=== PATIENT | male | born 1940 | race Caucasian/White ===

== ENCOUNTER → 2016-09-30 | Outpatient (CLI) | payer OTHER, BC ==
[~2016-09-30] MED LIST: ALPR0.5T PO; ASPCH81; DILT360C22 PO; PRAV20TA PO; TAMS0.4C59 PO; VALS160T4 PO
[2016-09-30 10:22] LABS: BASO % 0.4 %; BASO ABS # 0.03 K/uL (0-0.2); COMPLETE YES; EOS % 3.4 %; HEMATOCRIT 42.7 % (42-52); IG% 0.3 %; LYMPH % 22.2 %; LYMPH ABS # 1.56 K/uL (1.2-3.4); MEAN CELL VOLUME 85.1 fL (80-100); MEAN CORPUSCULAR HEMOGLOBIN 30.9 pg (25-34); MEAN CORPUSCULAR HGB CONC 36.3 g/dl (32-36); MEAN PLATELET VOLUME 11.4 fL (7.4-10.4); MONO % 14.4 %; NEUT % 59.3 %; PLATELET COUNT 194 K/uL (130-400); RED BLOOD COUNT 5.02 M/uL (4.7-6.1); WHITE BLOOD COUNT 7.03 K/uL (4.8-10.8)
[2016-09-30 10:25] LABS: URINE APPEARANCE CLEAR (CLEAR); URINE BILIRUBIN NEG (NEG); URINE COLOR YELLOW; URINE NITRITE NEG (NEG); URINE PH 6.5 (4.5-7.5); URINE SPECIFIC GRAVITY 1.012 (1.000-1.030); UROBILINOGEN NEG (NEG)
[2016-09-30 10:36] LABS: MANUAL MICROSCOPIC REQUIRED? NO; REVIEW REQ? NO
[2016-09-30 10:56] LABS: ALT/SGPT 38 U/L (12-78); AST/SGOT 32 U/L (15-37); BLOOD UREA NITROGEN 19 mg/dl (7-18); BUN/CREATININE RATIO 14.7 (10-20); CALCIUM 8.6 mg/dl (8.5-10.1); CARBON DIOXIDE 32 mmol/L (21-32); CHLORIDE 95 mmol/L (98-107); GLUCOSE 114 mg/dl (70-99); POTASSIUM 3.1 mmol/L (3.5-5.1); SODIUM 135 mmol/L (136-145)
[2016-09-30 10:58] LABS: ESTIMATED AVERAGE GLUCOSE 126 mg/dl; HA1C FLAG Normal (Normal)
[2016-09-30 11:07] LABS: CHOLESTEROL 181 mg/dl (0-200); CHOLESTEROL/HDL RATIO 3.5; HDL CHOLESTEROL 51 mg/dl; LDL CHOLESTEROL CALCULATED 87 mg/dl; TRIGLYCERIDES 215 mg/dl (0-150); VERY LOW DENSITY LIPOPROT CALC 43 mg/dl
--- NOTE | 2016-10-06 12:19 | CODING QUERY MEDICAL NECESSITY ---
SUPPORTING DIAGNOSIS NEEDED A supporting diagnosis is required for the test/procedure performed on this patient in order for us to be reimbursed by the patient's insurance. Please provide a supporting diagnosis for the following test/procedure listed below next to the test name along with your signature. *If there is no additional diagnosis for this patient that would support the following test/procedure please document that below next to the test/procedure. Test(s)/Procedure(s) that require a supporting diagnosis: * GLYCATED HEMOGLOBIN DIAGNOSIS: * DOS: 09/30/16 Provider Signature: Date: Thank you Shira Hernandez Health Information Management Once completed, please kindly fax back to [phone] For questions please call [phone]
== END | disposition home or self-care (01) ==
LOC: C.LAB1850 09:25
PROVIDERS: ATTEND Internal Medicine
DX: E78.00 Pure hypercholesterolemia, unspecified (principal); R73.9 Hyperglycemia, unspecified

== ENCOUNTER → 2016-12-16 | Outpatient (CLI) | payer OTHER, BC ==
[~2016-12-16] VITALS: Ht 172.7 cm; Wt 98.2 kg
[2016-12-16 13:49] VITALS: BP 146/78; PULSE 64; Ht 172.7 cm; Wt 98.2 kg
== END | disposition home or self-care (01) ==
LOC: C.NEUR 12:45
PROVIDERS: ATTEND Physician Assistant Medical
DX: G47.30 Sleep apnea, unspecified (principal)

== ENCOUNTER → 2017-04-15 | Outpatient (CLI) | payer OTHER, BC ==
[2017-04-15 12:10] LABS: BASO % 0.4 %; BASO ABS # 0.03 K/uL (0-0.2); COMPLETE YES; HEMATOCRIT 44.4 % (42-52); IG% 0.5 %; LYMPH % 22.7 %; LYMPH ABS # 1.86 K/uL (1.2-3.4); MEAN CELL VOLUME 88.4 fL (80-100); MEAN CORPUSCULAR HEMOGLOBIN 31.5 pg (25-34); MEAN CORPUSCULAR HGB CONC 35.6 g/dl (32-36); MEAN PLATELET VOLUME 12.3 fL (7.4-10.4); MONO % 12.6 %; NEUT % 58.8 %; PLATELET COUNT 186 K/uL (130-400); RED BLOOD COUNT 5.02 M/uL (4.7-6.1)
[2017-04-15 12:36] LABS: ESTIMATED AVERAGE GLUCOSE 120 mg/dl; HA1C FLAG Normal (Normal)
[2017-04-15 12:48] LABS: ALT/SGPT 35 U/L (12-78); AST/SGOT 33 U/L (15-37); BLOOD UREA NITROGEN 16 mg/dl (7-18); BUN/CREATININE RATIO 13.1 (10-20); CALCIUM 9.2 mg/dl (8.5-10.1); CARBON DIOXIDE 32 mmol/L (21-32); CHLORIDE 97 mmol/L (98-107); CHOLESTEROL 186 mg/dl (0-200); GLUCOSE 115 mg/dl (70-99); POTASSIUM 3.4 mmol/L (3.5-5.1); SODIUM 134 mmol/L (136-145); TRIGLYCERIDES 234 mg/dl (0-150); VERY LOW DENSITY LIPOPROT CALC 47 mg/dl
[2017-04-15 12:51] LABS: CHOLESTEROL/HDL RATIO 3.8; HDL CHOLESTEROL 49 mg/dl; LDL CHOLESTEROL CALCULATED 90 mg/dl
[2017-04-15 16:19] LABS: URINE APPEARANCE CLEAR (CLEAR); URINE BILIRUBIN NEG (NEG); URINE COLOR YELLOW; URINE NITRITE NEG (NEG); URINE PH >= 9.0 (4.5-7.5); URINE SPECIFIC GRAVITY 1.016 (1.000-1.030); UROBILINOGEN NEG (NEG)
[2017-04-15 16:20] LABS: MANUAL MICROSCOPIC REQUIRED? NO; REVIEW REQ? NO
== END | disposition home or self-care (01) ==
LOC: C.LAB1850 09:51
PROVIDERS: ATTEND Internal Medicine
DX: E78.00 Pure hypercholesterolemia, unspecified (principal)

== ENCOUNTER → 2017-04-23 | Outpatient (CLI) | payer OTHER, BC ==
--- NOTE | 2017-04-23 13:48 | DIAGNOSTIC IMAGING REPORT ---
LEFT KNEE 4 VIEWS HISTORY: Acute left knee pain. COMPARISON: None. FINDINGS: There is no fracture or dislocation. Soft tissues are unremarkable. No radiopaque foreign bodies. Mild cartilage space narrowing within the lateral patellofemoral compartment and a small marginal osteophytes. No knee effusion. Mild hypertrophy of the tibial spines. IMPRESSION: No fractures. Mild patellofemoral osteoarthritis. Electronically signed by: Kervin Benjamin M.D. 04/23/2017 1:47 PM Dictated Date/Time: 04/23/2017 1:45 PM
== END | disposition home or self-care (01) ==
LOC: C.RAD1850 13:29
PROVIDERS: ATTEND Physician Assistant
DX: M25.569 Pain in unspecified knee (principal)

== ENCOUNTER → 2017-06-16 | Outpatient (CLI) | payer OTHER, BC ==
[~2017-06-16] VITALS: Ht 172.7 cm; Wt 223.9 kg
[2017-06-16 13:49] VITALS: BP 156/81; PULSE 65; Ht 172.7 cm; Wt 223.9 kg
== END | disposition home or self-care (01) ==
LOC: C.NEUR 12:35
PROVIDERS: ATTEND Internal Medicine Pulmonary Disease
DX: G47.30 Sleep apnea, unspecified (principal)

== ENCOUNTER 2017-07-15 06:35 | Emergency (ER) | payer OTHER, BC ==
[~2017-07-15] VITALS: Ht 172.7 cm; Wt 103.1 kg
[2017-07-15 06:42] VITALS: TEMP 37.1; Ht 172.7 cm; Wt 103.1 kg
[2017-07-15] MEDS ORDERED: ACETAMINOPHEN 500 MG TAB PO STA (07:03)
[2017-07-15] MEDS ORDERED: OSELTAMIVIR PHOSPHATE 75 MG CAP PO STA (07:03)
[2017-07-15] MEDS ORDERED: ALBUTEROL 0.5% NEB SOLN 2.5 MG/0.5 ML VIAL INH STA ×2 (07:03→07:46)
[2017-07-15] MEDS ORDERED: HYDROCODONE/HOMATROPINE SYRUP 5MG/1.5MG 5ML UDP PO STA (07:03)
--- NOTE | 2017-07-15 07:12 | EMERGENCY ROOM VISIT NOTE ---
History Report prepared by Mikey: Braden Vuong Under the Supervision of: Dr. Aubrey Canchola M.D. First contact with patient: 06:47 Chief Complaint: COUGH Stated Complaint: COUGH,CAN'T CATCH BREATH,DRAINAGE IN THROAT History of Present Illness The patient is a 77 year old male who presents to the Emergency Room with complaints of a cough that began four days ago. He has a past medical history of hypertension and hyperlipidemia. The patient's symptoms began with fatigue, causing him to be bed ridden most of the weekend. He saw his PCP two days ago who placed him onto Doxycycline. After taking it normally for two days, he notes that his symptoms have not improved at all. He is also experiencing his chills, diaphoresis, cough, body aches, rhinorrhea, and post nasal drip. His chest is also moderately sore secondary to his cough. He denies any fevers, nausea, vomiting, or abdominal pain. He received his influenza immunization and notes that he has a history of getting the flu whenever he gets the immunization. Source of History: patient Onset: 4 days ago Position: other (Respiratory system) Symptom Intensity: moderate Quality: other (Cough) Timing: other (Persistent) Associated Symptoms: + chills, + diaphoresis, + chest pain (soreness, secondary to cough), No fevers, No nausea, No vomiting Note: He is experiencing post nasal drip, rhinorrhea, and body aches. Review of Systems See HPI for pertinent positives & negatives. A total of 10 systems reviewed and were otherwise negative. Past Medical & Surgical Medical Problems: (1) High cholesterol (2) Hypertension Family History Omitted secondary to the patient's age. Social History Smoking Status: Never Smoker Smokeless Tobacco Use: No Alcohol Use: occasionally Drug Use: none Occupation Status: retired Current/Historical Medications Scheduled Alprazolam (Xanax), 0.5 MG PO HS Aspirin (Aspirin), 81 MG PO DAILY Benzonatate (Tessalon Perles), 100 MG PO TID Diltiazem Hcl Extended Release (Tiazac 360 Mg), 360 MG PO DAILY Doxycycline Monohydrate (Monodox), 100 MG PO BID Oseltamivir Phosphate (Tamiflu), 75 MG PO BID Pantoprazole (Protonix), 40 MG PO DAILY Ranitidine Hcl (Zantac), 150 MG PO HS Rosuvastatin Calcium (Crestor), 5 MG PO DAILY Tamsulosin Hcl (Flomax), 0.4 MG PO HS Valsartan/Hctz (Diovan Hct 160MG/25MG), 1 TAB PO DAILY Scheduled PRN Hydrocodone W/ Homatropine (Hycodan 5/1.5MG 5 Ml), 5 ML PO HS PRN for Cough Allergies Coded Allergies: No Known Allergies (Unverified , 07/15/17) Physical Exam Vital Signs Date Time Temp Pulse Resp B/P (MAP) Pulse Ox O2 Delivery O2 Flow Rate FiO2 07/15/17 09:30 77 18 151/75 95 07/15/17 07:50 95 Room Air 07/15/17 07:48 71 07/15/17 06:42 37.1 74 18 159/84 93 Room Air Physical Exam GENERAL: Patient is a healthy-appearing well-nourished male HEAD: Normocephalic atraumatic EYES: Ocular movements intact pupils equal and react to light OROPHARYNX mucous membranes are moist no exudates present no erythema or edema present NECK: Supple no nuchal rigidity, no evidence of meningitis or encephalitis on exam. CHEST: Good equal expansion LUNGS: Clear and equal to auscultation CARDIAC: Normal S1 and S2 ABDOMEN: Soft nontender no guarding BACK: No CVA tenderness EXTREMITIES: No pain upon palpation normal muscle strength in all groups no clubbing cyanosis or edema NEURO: Patient is following commands and answering questions appropriately. Alert and oriented x3 Cranial Nerves 2-12 grossly intact Medical Decision & Procedures ER Provider Diagnostic Interpretation: Radiology results as stated below per my review and radiologist interpretation: CHEST ONE VIEW PORTABLE CLINICAL HISTORY: Pt c/o SOB dyspnea COMPARISON STUDY: 02/25/2016 FINDINGS: Mild stable cardiomegaly. Lungs are clear. Mild chronic elevation right hemidiaphragm. No focal infiltrate. IMPRESSION: No acute process. The above report was generated using voice recognition software. It may contain grammatical, syntax or spelling errors. Electronically signed by: Tad Barone M.D. 07/15/2017 7:24 AM Dictated Date/Time: 07/15/2017 7:23 AM Laboratory Results 07/15/17 07:35 Red Blood Count 4.73, Mean Corpuscular Volume 89.0, Mean Corpuscular Hemoglobin 31.9, Mean Corpuscular Hemoglobin Concent 35.9, Mean Platelet Volume 11.6, Neutrophils (%) (Auto) 73.5, Lymphocytes (%) (Auto) 7.4, Monocytes (%) (Auto) 17.2, Eosinophils (%) (Auto) 1.3, Basophils (%) (Auto) 0.2, Neutrophils # (Auto ) 7.64, Lymphocytes # (Auto) 0.77, Monocytes # (Auto) 1.79, Eosinophils # (Auto ) 0.14, Basophils # (Auto) 0.02 07/15/17 07:35 Test 07/15/17 07:27 07/15/17 07:35 07/15/17 08:24 Influenza Type A Antigen Neg for Influ A (NEG) Influenza Type B Antigen Neg for Influ B (NEG) White Blood Count 10.40 K/uL (4.8-10.8) Red Blood Count 4.73 M/uL (4.7-6.1) Hemoglobin 15.1 g/dL (14.0-18.0) Hematocrit 42.1 % (42-52) Mean Corpuscular Volume 89.0 fL (80-100) Mean Corpuscular Hemoglobin 31.9 pg (25-34) Mean Corpuscular Hemoglobin Concent 35.9 g/dl (32-36) Platelet Count 130 K/uL (130-400) Mean Platelet Volume 11.6 fL (7.4-10.4) Neutrophils (%) (Auto) 73.5 % Lymphocytes (%) (Auto) 7.4 % Monocytes (%) (Auto) 17.2 % Eosinophils (%) (Auto) 1.3 % Basophils (%) (Auto) 0.2 % Neutrophils # (Auto) 7.64 K/uL (1.4-6.5) Lymphocytes # (Auto) 0.77 K/uL (1.2-3.4) Monocytes # (Auto) 1.79 K/uL (0.11-0.59) Eosinophils # (Auto) 0.14 K/uL (0-0.5) Basophils # (Auto) 0.02 K/uL (0-0.2) RDW Standard Deviation 43.9 fL (36.4-46.3) RDW Coefficient of Variation 13.4 % (11.5-14.5) Immature Granulocyte % (Auto) 0.4 % Immature Granulocyte # (Auto) 0.04 K/uL (0.00-0.02) Anion Gap 7.0 mmol/L (3-11) Est Creatinine Clear Calc Drug Dose 55.8 ml/min Estimated GFR () 62.3 Estimated GFR (Non- 53.8 BUN/Creatinine Ratio 11.0 (10-20) Calcium Level 8.2 mg/dl (8.5-10.1) Total Bilirubin 0.9 mg/dl (0.2-1) Aspartate Amino Transf (AST/SGOT) 56 U/L (15-37) Alanine Aminotransferase (ALT/SGPT) 42 U/L (12-78) Alkaline Phosphatase 97 U/L (45-117) Total Creatine Kinase 1154 U/L (39-308) Creatine Kinase MB 1.7 ng/ml (0.5-3.6) Troponin I < 0.015 ng/ml (0-0.045) Total Protein 7.1 gm/dl (6.4-8.2) Albumin 3.6 gm/dl (3.4-5.0) Globulin 3.5 gm/dl (2.5-4.0) Albumin/Globulin Ratio 1.0 (0.9-2) Creatine Kinase MB Ratio (0-3.0) Labs reviewed by ED physician. Medications Administered Medications (Trade) Dose Ordered Sig/Joann Route Start Time Stop Time Status Last Admin Dose Admin Acetaminophen (Tylenol Tab) 1,000 mg NOW STAT PO 07/15/17 07:03 07/15/17 07:07 DC 07/15/17 07:53 1,000 MG Oseltamivir Phosphate (Tamiflu Cap) 75 mg NOW STAT PO 07/15/17 07:03 07/15/17 07:07 DC 07/15/17 07:52 75 MG Hydrocodone Bit/ Homatropine Methylb (Hycodan Syrup) 5 ml NOW STAT PO 07/15/17 07:03 07/15/17 07:07 DC 07/15/17 07:52 5 ML Albuterol Sulfate (Ventolin 0.5% 2.5MG/0.5ML Neb) 2.5 mg NOW STAT INH 07/15/17 07:03 07/15/17 07:08 DC 07/15/17 07:51 2.5 MG Ketorolac Tromethamine (Toradol Inj) 30 mg NOW STAT IV 07/15/17 07:46 07/15/17 07:47 DC 07/15/17 08:33 30 MG Potassium Chloride (Aidee Ciel Elix) 40 meq NOW STAT PO 07/15/17 08:07 07/15/17 08:08 DC 07/15/17 08:34 40 MEQ Potassium Chloride (Aidee Ciel Elix) 40 meq NOW STAT PO 07/15/17 08:39 07/15/17 08:40 DC 07/15/17 09:04 40 MEQ ECG Indication: SOB/dyspnea Rate (beats per minute): 66 Rhythm: normal sinus Findings: no acute ischemic change, no ectopy, other (Old anterior infarct) Comparison ECG Date: 10 May 2013 Change: no significant change ED Course 0647: Past medical records reviewed. The patient was evaluated in room A2. A complete history and physical examination was performed. 0703: Ordered Albuterol Sulfate 2.5 mg INH, Hycodan Syrup 5 ml PO, Tamiflu Cap 75 mg PO, Tylenol Tab 1000 mg PO 0746: Ordered Toradol Inj 30 mg IV, Albuterol Sulfate 2.5 mg INH 0807: Ordered Potassium Chloride 40 meq PO 0828: Upon reevaluation, the patient is starting to feel better. 0839: Ordered Potassium Chloride 40 meq PO 0900: Upon reexamination the patient is resting. I discussed results and treatment plan with the patient. He verbalizes agreement and understanding. The patient is ready for discharge. Medical Decision Differential diagnosis: Etiologies such as viral syndrome, otitis, pharyngitis, pneumonia, influenza, meningitis, urinary tract infection, sepsis, bacteremia, as well as others were entertained. This is a 77-year-old male who presents emergency department complaining of URI. The patient was given Tylenol as well as Hycodan and started on Tamiflu. I do suspect that the patient has influenza as he does not have an elevation in his white blood count cell count. I will start the patient on Tamiflu noting medical short duration of this. The patient I do believe is well enough to be discharged home for follow-up with his primary care physician. Patient was in agreement with the treatment plan. Medication Reconcilliation Current Medication List: was personally reviewed by me Blood Pressure Screening Patient's blood pressure: Elevated blood pressure Blood pressure disposition: Referred to PCP Impression Primary Impression: Upper respiratory infection Additional Impression: Hypertension Scribe Attestation The scribe's documentation has been prepared under my direction and personally reviewed by me in its entirety. I confirm that the note above accurately reflects all work, treatment, procedures, and medical decision making performed by me. Departure Information Dispostion Home / Self-Care Prescriptions Hydrocodone W/ Homatropine (HYCODAN 5/1.5MG 5 ML) 1 Syp Syp 5 ML PO HS Y for Cough, #120 ML Prov: Aubrey Canchola MD 07/15/17 Oseltamivir Phosphate (Tamiflu) 75 Mg Cap 75 MG PO BID, #10 CAP Prov: Aubrey Canchola MD 07/15/17 Referrals Yung Ruiz M.D. (PCP) Forms HOME CARE DOCUMENTATION FORM, IMPORTANT VISIT INFORMATION, School Instructions, Work Instructions Patient Instructions ED Dehydration, ED URI Viral, Hypertension Ct, [facility] Additional Instructions Increase fluids and Gatorade Take 1000 mg Tylenol every 6 hours Take 600 mg Ibuprofen every 6 hours Continue taking Doxycycline You were found to have an elevated blood pressure today (>120 sytolic or >90 diastolic). Per medicare guidelines, you need to follow up with this blood pressure screening with your Primary Care Physician (PCP). For a new PCP call [phone]. You received narcotic or benzodiazepene medication while in the emergency room today. This is an addictive medication that may cause drowziness as well as constipation. Do not drive, operate heavy machinery, or drink alcohol under the influence of this medication. Culture results are usually available in approx 48 hours You have been examined and treated today on an emergency basis only. This is not a substitute for, or an effort to provide, complete comprehensive medical care. It is impossible to recognize and treat all injuries or illnesses in a single emergency department visit. It is therefore important that you follow up closely with Dr Ruiz. Call as soon as possible for an appointment. Thank you for your time and consideration. I look forward to speaking with you again soon. Please don't hesitate to call us if you have any questions. Problem Qualifiers Primary Impression: Upper respiratory infection URI type: unspecified URI Qualified Codes: J06.9 - Acute upper respiratory infection, unspecified Additional Impression: Hypertension Hypertension type: unspecified Qualified Codes: I10 - Essential (primary) hypertension
--- NOTE | 2017-07-15 07:25 | DIAGNOSTIC IMAGING REPORT ---
CHEST ONE VIEW PORTABLE CLINICAL HISTORY: Pt c/o SOB dyspnea COMPARISON STUDY: 02/25/2016 FINDINGS: Mild stable cardiomegaly. Lungs are clear. Mild chronic elevation right hemidiaphragm. No focal infiltrate. IMPRESSION: No acute process. The above report was generated using voice recognition software. It may contain grammatical, syntax or spelling errors. Electronically signed by: Tad Barone M.D. 07/15/2017 7:24 AM Dictated Date/Time: 07/15/2017 7:23 AM
[2017-07-15] MEDS ORDERED: BENZ100C84 PO (07:45)
[2017-07-15] MEDS ORDERED: DOXY100C76 PO (07:45)
[2017-07-15] MEDS ORDERED: RANI150T3 PO (07:45)
[2017-07-15] MEDS ORDERED: ROSU5TAB PO (07:45)
[2017-07-15] MEDS ORDERED: PANT40TA PO (07:45)
[2017-07-15] MEDS ORDERED: TAMS0.4C38 PO (07:45)
[2017-07-15] MEDS ORDERED: ASPI-461 PO (07:45)
[2017-07-15] MEDS ORDERED: VALS160T60 PO (07:45)
[2017-07-15 07:46] LABS: BASO % 0.2 %; BASO ABS # 0.02 K/uL (0-0.2); EOS % 1.3 %; EOS ABS # 0.14 K/uL (0-0.5); HEMATOCRIT 42.1 % (42-52); HEMOGLOBIN 15.1 g/dL (14.0-18.0); IG# 0.04 K/uL (0.00-0.02); LYMPH % 7.4 %; LYMPH ABS # 0.77 K/uL (1.2-3.4); MEAN CORPUSCULAR HEMOGLOBIN 31.9 pg (25-34); MEAN CORPUSCULAR HGB CONC 35.9 g/dl (32-36); MEAN PLATELET VOLUME 11.6 fL (7.4-10.4); MONO % 17.2 %; MONO ABS # 1.79 K/uL (0.11-0.59); NEUT % 73.5 %; NEUT ABS # 7.64 K/uL (1.4-6.5); PLATELET COUNT 130 K/uL (130-400); RED CELL DISTRIBUTION WIDTH CV 13.4 % (11.5-14.5); RED CELL DISTRIBUTION WIDTH SD 43.9 fL (36.4-46.3)
[2017-07-15] MEDS ORDERED: KETOROLAC TROMETHAMINE 30 MG/ML VIAL IV STA (07:46)
[2017-07-15 07:50] VITALS: O2SAT 95
[2017-07-15 08:04] LABS: ALBUMIN 3.6 gm/dl (3.4-5.0); CALCIUM 8.2 mg/dl (8.5-10.1); CREATININE 1.27 mg/dl (0.60-1.40); POTASSIUM 2.7 mmol/L (3.5-5.1)
[2017-07-15] MEDS ORDERED: POTASSIUM CHLORIDE 20 MEQ/15 ML UDC PO STA ×2 (08:07→08:39)
[2017-07-15 08:18] LABS: TOTAL PROTEIN 7.1 gm/dl (6.4-8.2)
[2017-07-15 08:22] LABS: INFLUENZA B ANTIGEN Neg for Influ B (NEG)
[2017-07-15] MEDS ORDERED: OSEL75CA23 PO (08:47)
[2017-07-15] MEDS ORDERED: HYDR5SYP11 PO (08:47)
[2017-07-15 08:57] LABS: CKMB 1.7 ng/ml (0.5-3.6)
[2017-07-15 09:30] VITALS: BP 151/75; PULSE 77; O2SAT 95
== END 2017-07-15 09:32 | disposition home or self-care (01) ==
LOC: C.EDB 06:37 → C.EDA 09:32
DX: J06.9 Acute upper respiratory infection, unspecified (principal); I10 Essential (primary) hypertension; E78.5 Hyperlipidemia, unspecified; E78.00 Pure hypercholesterolemia, unspecified; Z79.82 Long term (current) use of aspirin; Z79.899 Other long term (current) drug therapy

== ENCOUNTER → 2017-09-15 | Outpatient (CLI) | payer OTHER, BC ==
[~2017-09-15] MED LIST changes: -ASPCH81; +ASPI-461 PO; +BENZ100C84 PO; +DOXY100C76 PO; +OSEL75CA23 PO; +PANT40TA PO; -PRAV20TA PO; +RANI150T3 PO; +ROSU5TAB PO; +TAMS0.4C38 PO; -TAMS0.4C59 PO; -VALS160T4 PO; +VALS160T60 PO
== END | disposition home or self-care (01) ==
LOC: C.LAB1850 12:32
PROVIDERS: ATTEND Internal Medicine
DX: M79.1 Myalgia (principal)

== ENCOUNTER 2017-11-10 12:03 | Observation (INO) | payer OTHER, BC ==
[~2017-11-10] VITALS: Ht 172.7 cm; Wt 93.7 kg
[2017-11-10] MEDS ORDERED: ASPIRIN 81 MG CHEW PO STA (12:33)
--- NOTE | 2017-11-10 12:36 | EMERGENCY ROOM VISIT NOTE ---
History Report prepared by Mikey: Harry Zaragoza Under the Supervision of: Dr. Catracho Argueta D.O. First contact with patient: 12:26 Chief Complaint: CHEST PAIN Stated Complaint: CHEST PAIN, BREATHING Nursing Triage Summary: pt reports chest pain started at 0900 . pain inbetween shoulder blades and radiates to left arm. pt states he was unloading shrubbery from trailer prior to pain starting. has hx of hypertension. . pt reports he drove here then parked while walking into ed he got dizzy. History of Present Illness The patient is a 77 year old male with a history of hypertension who presents to the Emergency Room with complaints of an episode of chest pain that started around 3 and a half hours ago. He states that he was walking in his home after unloading shrubbery from his trailer, and suddenly got pain across his chest. He notes that the pain went into his back underneath his left shoulder blade, and down his left arm. He states that he was lightheaded with the pain. He says that the pain is now completely gone. However, he adds that he got dizzy when he was walking into the ED today. The patient adds that he has been short of breath recently with a cough. He says that he takes a baby Aspirin daily, and took one earlier today. The patient notes that he has been going through some stress recently as he is trying to sell his home. He denies any heart racing. He adds that his legs are chronically swollen. He states that he had a stress test years ago and did not need stent placement. The patient states that he has no cardiac history and no notable surgical history. He is a non-smoker, and drinks occasional alcohol. Source of History: patient Onset: 3 and a half hours ago Position: chest Quality: other (pain) Timing: other (episode) Associated Symptoms: + cough, + SOB, + back pain Note: Associated symptoms: Lightheadedness, dizziness. Denies heart racing. Review of Systems See HPI for pertinent positives & negatives. A total of 10 systems reviewed and were otherwise negative. Past Medical & Surgical Medical Problems: (1) High cholesterol (2) Hypertension Family History Family history omitted secondary to patient's advanced age. Social History Smoking Status: Never Smoker Alcohol Use: occasionally Drug Use: none Occupation Status: retired Current/Historical Medications Scheduled Alprazolam (Xanax), 0.25 MG PO HS Aspirin (Aspirin), 81 MG PO DAILY Coenzyme Q10 (Ubidecarenone) (Coq-10), 50 MG PO DAILY Diltiazem Hcl Extended Release (Tiazac 360 Mg), 360 MG PO DAILY Pantoprazole (Protonix), 40 MG PO DAILY Ranitidine Hcl (Zantac), 150 MG PO HS Rosuvastatin Calcium (Crestor), 5 MG PO DAILY Tamsulosin Hcl (Flomax), 0.4 MG PO HS Valsartan (Diovan), 1 TAB PO DAILY Allergies Coded Allergies: No Known Allergies (Unverified , 11/10/17) Physical Exam Vital Signs Date Time Temp Pulse Resp B/P (MAP) Pulse Ox O2 Delivery O2 Flow Rate FiO2 11/10/17 13:53 57 17 150/77 97 Room Air 11/10/17 12:44 57 14 145/77 97 Room Air 11/10/17 12:44 96 Room Air 11/10/17 12:44 96 Room Air 11/10/17 12:17 64 11/10/17 12:15 37.0 62 20 174/79 96 Room Air 11/10/17 12:08 96 Room Air Physical Exam GENERAL: Patient is awake, alert, and in no acute distress. Patient is resting comfortably and showing no signs of anxiety EYES: The conjunctivae are clear. The pupils are round and reactive. EARS, NOSE, MOUTH AND THROAT: The nose is without any evidence of any deformity. Mucous membranes are moist tongue is midline NECK: The neck is nontender and supple. RESPIRATORY: Normal respiratory effort is noted there is no evidence of wheezing rhonchi or rales CARDIOVASCULAR: Regular rate and rhythm noted there no murmurs rubs or gallops normal S1 normal S2 GASTROINTESTINAL: The abdomen is soft. Bowel sounds are present in all quadrants. Abdomen is nontender MUSCULOSKELETAL/EXTREMITIES: There is no evidence of gross deformity full range of motion is noted in the hips and shoulders SKIN: Trace pedal edema bilaterally. NEUROLOGIC: Patient is awake alert and oriented x3. Medical Decision & Procedures ER Provider Diagnostic Interpretation: X-ray results as stated below per interpretation by me and the radiologist. CHEST ONE VIEW PORTABLE HISTORY: Atypical chest pain COMPARISON: Chest 07/15/2017. FINDINGS: There are low lung volumes. The heart remains mildly enlarged. No new focal lung consolidations to suggest pneumonia. No evidence for edema. No pleural effusions. No pneumothorax. Stable chronic elevation of the right hemidiaphragm. IMPRESSION: No significant change compared to the prior study. No acute process. Stable mild cardiomegaly. Electronically signed by: Kervin Benjamin M.D. 11/10/2017 12:44 PM Dictated Date/Time: 11/10/2017 12:43 PM Laboratory Results 11/10/17 12:20 Test 11/10/17 12:20 11/10/17 12:40 Red Blood Count 4.89 M/uL (4.7-6.1) Mean Corpuscular Volume 85.7 fL (80-100) Mean Corpuscular Hemoglobin 31.9 pg (25-34) Mean Corpuscular Hemoglobin Concent 37.2 g/dl (32-36) RDW Standard Deviation 42.0 fL (36.4-46.3) RDW Coefficient of Variation 13.5 % (11.5-14.5) Mean Platelet Volume 11.9 fL (7.4-10.4) Prothrombin Time 10.6 SECONDS (9.0-12.0) Prothromb Time International Ratio 1.0 (0.9-1.1) Activated Partial Thromboplast Time 25.4 SECONDS (21.0-31.0) Partial Thromboplastin Ratio 1.0 Total Bilirubin 0.8 mg/dl (0.2-1) Aspartate Amino Transf (AST/SGOT) 48 U/L (15-37) Alanine Aminotransferase (ALT/SGPT) 45 U/L (12-78) Alkaline Phosphatase 111 U/L (45-117) Creatine Kinase MB 6.6 ng/ml (0.5-3.6) Creatine Kinase MB Ratio 1.1 (0-3.0) Total Protein 7.7 gm/dl (6.4-8.2) Albumin 3.8 gm/dl (3.4-5.0) Globulin 3.9 gm/dl (2.5-4.0) Albumin/Globulin Ratio 1.0 (0.9-2) Bedside Troponin I < 0.030 ng/ml (0-0.045) Laboratory results per my review. Medications Administered Medications (Trade) Dose Ordered Sig/Joann Route Start Time Stop Time Status Last Admin Dose Admin Aspirin (Aspirin Chew) 162 mg NOW STAT PO 5/8/18 12:33 11/10/17 12:34 DC 11/10/17 12:43 162 MG Acetaminophen (Tylenol Tab) 650 mg Q4H PRN PO 11/10/17 14:30 11/11/17 18:17 DC 11/11/17 05:50 650 MG ECG Per My Interpretation Indication: chest pain Rate (beats per minute): 61 Rhythm: sinus rhythm Findings: LBBB, other (no PVCs, no acute ST segment abnormalities) Change: no significant change (from 07/15/17) ED Course 1229: The patient was evaluated in room A2. A complete history and physical examination were performed. 1233: Aspirin Chew 162 mg PO. 1325: Upon reevaluation, the patient is resting. I discussed results and treatment plan with him. He verbalizes agreement and understanding. The patient will be evaluated for further management and care. 1405: I discussed the patient with Dr. Brian ACHARYA zoning assistant. He will evaluate the patient for further treatment. Medical Decision Differential diagnosis: Etiologies such as cardiac ischemia, aortic dissection, pulmonary embolism, pneumonia, pneumothorax, musculoskeletal, infections, pericarditis, myocarditis , esophageal rupture, gastrointestinal, as well as others were entertained. Nursing notes reviewed. The patient is a 77-year-old male who presented to the emergency department for dyspnea on exertion. The patient's been having symptoms for approximately a week or 2. He states today he started noticing exertional chest pain as well. I discussed patient's laboratory and radiographic studies with him. I also discussed the limitations of the emergency department workup for chest pain with him. Given his risk factors and complaints at this time I discussed his case with the on-call [facility] hospitalist. They have agreed to evaluate the patient in the emergency department for further management and disposition. Medication Reconcilliation Current Medication List: was personally reviewed by me Blood Pressure Screening Patient's blood pressure: Elevated blood pressure Referred to hospitalist. Consults Time Called: 1330 Consulting Physician: Dr. Brian ACHARYA zoning assistant Returned Call: 1407 I discussed the patient with Dr. Brian ACHARYA zoning assistant. He will evaluate the patient for further treatment. Impression Primary Impression: Exertional chest pain Additional Impression: Dyspnea on exertion Scribe Attestation The scribe's documentation has been prepared under my direction and personally reviewed by me in its entirety. I confirm that the note above accurately reflects all work, treatment, procedures, and medical decision making performed by me. Departure Information Dispostion Being Evaluated By Hospitalist Prescriptions Coenzyme Q10 (Ubidecarenone) (COQ-10) 50 Mg Cap 50 MG PO DAILY for 30 Days OTC Prov: Akiko Adkins MD 11/11/17 Valsartan (DIOVAN) 160 Mg Tab 1 TAB PO DAILY for 30 Days, #30 TAB 0 Refills Prov: Akiko Adkins MD 11/11/17 Rosuvastatin Calcium (CRESTOR) 5 Mg Tab 5 MG PO DAILY for 30 Days HOLD x 1-2 weeks until muscle aches resolve, and then restart Prov: Akiko Adkins MD 11/11/17 Alprazolam (XANAX) 0.5 Mg Tab 0.25 MG PO HS for 30 Days, TAB Prov: Akiko Adkins MD 11/11/17 Referrals Yung Ruiz M.D. (PCP) Patient Instructions My [facility] Problem Qualifiers
[2017-11-10 12:40] LABS: HEMATOCRIT 41.9 % (42-52); HEMOGLOBIN 15.6 g/dL (14.0-18.0); MEAN CELL VOLUME 85.7 fL (80-100); MEAN CORPUSCULAR HEMOGLOBIN 31.9 pg (25-34); MEAN CORPUSCULAR HGB CONC 37.2 g/dl (32-36); MEAN PLATELET VOLUME 11.9 fL (7.4-10.4); PLATELET COUNT 152 K/uL (130-400); RED CELL DISTRIBUTION WIDTH CV 13.5 % (11.5-14.5); WHITE BLOOD COUNT 8.02 K/uL (4.8-10.8)
--- NOTE | 2017-11-10 12:45 | DIAGNOSTIC IMAGING REPORT ---
CHEST ONE VIEW PORTABLE HISTORY: Atypical chest pain COMPARISON: Chest 07/15/2017. FINDINGS: There are low lung volumes. The heart remains mildly enlarged. No new focal lung consolidations to suggest pneumonia. No evidence for edema. No pleural effusions. No pneumothorax. Stable chronic elevation of the right hemidiaphragm. IMPRESSION: No significant change compared to the prior study. No acute process. Stable mild cardiomegaly. Electronically signed by: Kervin Benjamin M.D. 11/10/2017 12:44 PM Dictated Date/Time: 11/10/2017 12:43 PM
[2017-11-10 12:51] LABS: ALBUMIN 3.8 gm/dl (3.4-5.0); CALCIUM 8.5 mg/dl (8.5-10.1); CREATININE 1.38 mg/dl (0.60-1.40); POTASSIUM 3.2 mmol/L (3.5-5.1)
[2017-11-10 12:53] LABS: PTT PATIENT 25.4 SECONDS (21.0-31.0)
[2017-11-10 12:56] LABS: CKMB 6.6 ng/ml (0.5-3.6); TOTAL PROTEIN 7.7 gm/dl (6.4-8.2)
[2017-11-10] MEDS ORDERED: POLYETHYLENE (MIRALAX) 17 GM PACK PO PRN (14:30)
[2017-11-10] MEDS ORDERED: MoRPHine SULFATE 2 MG/ML CARP IV PRN (14:30)
[2017-11-10] MEDS ORDERED: ONDANSETRON INJ 2 MG/ML 2 ML VIAL IV PRN (14:30)
[2017-11-10] MEDS ORDERED: ALUMINUM/MAGNESIUM/SIMETH (MAALOX MAX) 30 ML UDC PO PRN (14:30)
[2017-11-10] MEDS ORDERED: MAGNESIUM HYDROXIDE SUSP 30 ML UDC PO PRN (14:30)
[2017-11-10] MEDS ORDERED: ACETAMINOPHEN 325 MG TAB PO PRN (14:30)
[2017-11-10] MEDS ORDERED: NITROGLYCERIN 0.4 MG SL PER TAB CHARGE SL PRN (14:30)
[2017-11-10] MEDS ORDERED: MAGNESIUM SULFATE 1GM / D5W 100 ML IV STA (14:45)
--- NOTE | 2017-11-10 14:53 | History and Physical ---
History & Physical Date & Time of Service: November 10, 2017 at 14:48 Chief Complaint: Chest Pain, Breathing Primary Care Physician: Yung Ruiz M.D. History of Present Illness Source: patient, hospital records 77 y/o M Hx HTN, HPL, BPH, GERD. Pt reports exertional CP and SOB which has progressed over the past week. He states that he could barely walk across the parking lot today without the onset of symptoms. He denies radiation of the CP , denies nausea/vomiting or diaphoresis. He does not have a documented history of CAD. Initial labs revealed an elevated CK although a troponin was WNL. An EKG revealed inferior Q wvs without any acute changes. Past Medical/Surgical History 1) HTN 2) HPL 3) BPH 4) GERD 5) Anxiety Family History Parents - history of CAD Social History Smoking Status: Never Smoker Drug Use: none Occupational Status: retired Allergies Coded Allergies: No Known Allergies (Unverified , 07/15/17) Home Medications Scheduled Alprazolam (Xanax), 0.5 MG PO HS Aspirin (Aspirin), 81 MG PO DAILY Benzonatate (Tessalon Perles), 100 MG PO TID Diltiazem Hcl Extended Release (Tiazac 360 Mg), 360 MG PO DAILY Doxycycline Monohydrate (Monodox), 100 MG PO BID Oseltamivir Phosphate (Tamiflu), 75 MG PO BID Pantoprazole (Protonix), 40 MG PO DAILY Ranitidine Hcl (Zantac), 150 MG PO HS Rosuvastatin Calcium (Crestor), 5 MG PO DAILY Tamsulosin Hcl (Flomax), 0.4 MG PO HS Valsartan/Hctz (Diovan Hct 160MG/25MG), 1 TAB PO DAILY Review of Systems Constitutional: No fever, No chills, No sweats Eyes: No worsening of vision ENT: No hearing loss, No unusual epistaxis, No nasal symptoms Respiratory: + dyspnea on exertion, No cough, No wheezing Cardiovascular: + chest pain, No orthopnea, No PND Abdomen: No pain, No vomiting Musculoskeletal: + problem reported (Reports generalized muscle pains for 2 years), No joint pain Genitourinary - Male: No hematuria, No dysuria Neurologic: No memory loss, No paralysis, No weakness Psychiatric: No depression symptoms Endocrine: No fatigue Hematologic / Lymphatic: No abnormal bleeding/bruising Integumentary: No rash Allergic / Immunologic: No environmental allergies Physical Exam Vital Signs Date Time Temp Pulse Resp B/P (MAP) Pulse Ox O2 Delivery O2 Flow Rate FiO2 11/10/17 13:53 57 17 150/77 97 Room Air 11/10/17 12:44 57 14 145/77 97 Room Air 11/10/17 12:44 96 Room Air 11/10/17 12:44 96 Room Air 11/10/17 12:17 64 11/10/17 12:15 37.0 62 20 174/79 96 Room Air 11/10/17 12:08 96 Room Air General Appearance: WD/WN, no apparent distress Head: normocephalic Eyes: normal inspection ENT: normal ENT inspection, pharynx normal Neck: supple, no JVD Respiratory/Chest: chest non-tender, lungs clear, normal breath sounds Cardiovascular: regular rate, rhythm Abdomen/GI: normal bowel sounds, non tender, soft Back: normal inspection Extremities/Musculoskelatal: normal inspection, no calf tenderness, normal capillary refill 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, no motor/sensory deficits, alert, oriented x 3 Skin: normal color Diagnostics Laboratory Results Results Past 24 Hours Test 11/10/17 12:20 11/10/17 12:40 Range/Units White Blood Count 8.02 4.8-10.8 K/uL Red Blood Count 4.89 4.7-6.1 M/uL Hemoglobin 15.6 14.0-18.0 g/dL Hematocrit 41.9 42-52 % Mean Corpuscular Volume 85.7 80-100 fL Mean Corpuscular Hemoglobin 31.9 25-34 pg Mean Corpuscular Hemoglobin Concent 37.2 32-36 g/dl RDW Standard Deviation 42.0 36.4-46.3 fL RDW Coefficient of Variation 13.5 11.5-14.5 % Platelet Count 152 130-400 K/uL Mean Platelet Volume 11.9 7.4-10.4 fL Prothrombin Time 10.6 9.0-12.0 SECONDS Prothromb Time International Ratio 1.0 0.9-1.1 Activated Partial Thromboplast Time 25.4 21.0-31.0 SECONDS Partial Thromboplastin Ratio 1.0 Sodium Level 134 136-145 mmol/L Potassium Level 3.2 3.5-5.1 mmol/L Chloride Level 98 98-107 mmol/L Carbon Dioxide Level 30 21-32 mmol/L Anion Gap 6.0 3-11 mmol/L Blood Urea Nitrogen 12 7-18 mg/dl Creatinine 1.38 0.60-1.40 mg/dl Est Creatinine Clear Calc Drug Dose 49.0 ml/min Estimated GFR () 56.4 Estimated GFR (Non- 48.6 BUN/Creatinine Ratio 8.8 10-20 Random Glucose 107 70-99 mg/dl Calcium Level 8.5 8.5-10.1 mg/dl Total Bilirubin 0.8 0.2-1 mg/dl Aspartate Amino Transf (AST/SGOT) 48 15-37 U/L Alanine Aminotransferase (ALT/SGPT) 45 12-78 U/L Alkaline Phosphatase 111 45-117 U/L Total Creatine Kinase 619 39-308 U/L Creatine Kinase MB 6.6 0.5-3.6 ng/ml Creatine Kinase MB Ratio 1.1 0-3.0 Total Protein 7.7 6.4-8.2 gm/dl Albumin 3.8 3.4-5.0 gm/dl Globulin 3.9 2.5-4.0 gm/dl Albumin/Globulin Ratio 1.0 0.9-2 Bedside Troponin I < 0.030 0-0.045 ng/ml EKG Sinus, Inferior Q waves - no acute changes Impression Assessment and Plan 77 y/o M Hx HTN, HPL, BPH, GERD. Pt reports exertional CP and SOB which has progressed over the past week. He states that he could barely walk across the parking lot today without the onset of symptoms. He denies radiation of the CP , denies nausea/vomiting or diaphoresis. He does not have a documented history of CAD. Initial labs revealed an elevated CK although a troponin was WNL. An EKG revealed inferior Q wvs without any acute changes. 1) Exertional CP - elevated CK - abnormal EKG - will monitor overnight - cont ASA, statin - serial troponin. A nuclear stress is scheduled for AM. 2) Elevated CK may represent evolving rhabdo as he was working outdoors today - will trend - IVF provided. Alternatively, he states that he has been c/o muscle pain for at least 2 years. He takes Crestor and may benefit from a cessation trial in the outpt setting provided CAD is ruled out. 3) HTN - cont Diltiazem, Valsartan - HCTZ held due to electrolyte abnormalities 4) HPL - cont Crestor 5) GERD - cont Ranitidine, Protonix 6) BPH - cont Flomax 7) Initial K was low and has been repleted Full code - Heparin prophylaxis Total time for this admit including review of labs, meds, imaging, records - discussion with pt and ER attending - 35 min Resuscitation Status VTE Prophylaxis Will order VTE Prophylaxis: Yes
[2017-11-10 15:00] VITALS: O2SAT 98
[2017-11-10] MEDS ORDERED: IV FLUIDS COMPLETED PRN (15:00)
[2017-11-10 15:30] VITALS: Ht 172.7 cm; Wt 93.7 kg
[2017-11-10] MEDS ORDERED: POTASSIUM CHLORIDE PWD 20 MEQ PACK PO ONE (16:15)
[2017-11-10] MEDS: D5NSS + 20MEQ KCL 1,000 ML IV SCH (16:46)
[2017-11-10 17:19] VITALS: BP 186/87; PULSE 75; TEMP 36.9; O2SAT 97
[2017-11-10 19:05] VITALS: BP 149/86; PULSE 64; TEMP 37.2; O2SAT 95
[2017-11-10] MEDS ORDERED: RANITIDINE HCL 150 MG TAB PO SCH (21:00)
[2017-11-10] MEDS ORDERED: TAMSULOSIN HCL 0.4 MG CAP PO SCH (21:00)
[2017-11-10] MEDS ORDERED: ALPRAZOLAM 0.5 MG TAB PO SCH (21:00)
[2017-11-10] MEDS: BENZONATATE 100MG CAP PO SCH ×2 (21:00→21:04)
[2017-11-10 23:04] VITALS: BP 152/80; PULSE 61; TEMP 36.9; O2SAT 95
[2017-11-11 03:16] VITALS: BP 156/79; PULSE 55; TEMP 36.8; O2SAT 98
[2017-11-11] MEDS: D5NSS + 20MEQ KCL 1,000 ML IV SCH (05:50)
[2017-11-11 06:45] LABS: CREATININE 1.23 mg/dl (0.60-1.40); POTASSIUM 3.2 mmol/L (3.5-5.1)
[2017-11-11 06:46] VITALS: BP 156/81; PULSE 54; TEMP 36.5; O2SAT 98
[2017-11-11] MEDS ORDERED: POTASSIUM CHLORIDE 10 MEQ TABCR PO STA (07:37)
[2017-11-11] MEDS: BENZONATATE 100MG CAP PO SCH ×2 (08:01→14:00)
[2017-11-11] MEDS ORDERED: DILTIAZEM HCL (TIAzac) 180 MG CAPCR PO SCH ×2 (09:00→21:00)
[2017-11-11] MEDS ORDERED: VALSARTAN 80 MG TAB PO SCH (09:00)
[2017-11-11] MEDS ORDERED: ROSUVASTATIN CALCIUM 5 MG TAB PO SCH (09:00)
[2017-11-11] MEDS ORDERED: HYDROCHLOROTHIAZIDE 25 MG TAB PO SCH (09:00)
[2017-11-11] MEDS ORDERED: PANTOprazole SOD 40 MG TAB PO SCH (09:00)
[2017-11-11] MEDS ORDERED: ASPIRIN 81 MG ECTAB PO SCH ×2 (09:00)
[2017-11-11] MEDS ORDERED: NURSING VERBAL MED ORDER ONE (11:15)
[2017-11-11] MEDS ORDERED: HYDROCHLOROTHIAZIDE 25 MG TAB PO ONE (11:30)
[2017-11-11 11:39] VITALS: BP 184/97; PULSE 60; TEMP 36.7; O2SAT 95
[2017-11-11] MEDS ORDERED: REGADENOSON 0.4 MG/5 ML SYR ONE (12:30)
[2017-11-11] MEDS ORDERED: ALPR0.5T PO (13:31)
--- NOTE | 2017-11-11 14:46 | Medical Student: [facility] ---
Med Student Progress Note Date of Service November 11, 2017. Subjective Pt evaluation today including: conversation w/ patient, physical exam Pain: None Voiding: no voiding problems This is a 77-year-old man with a history of hypertension, hypercholesterolemia, and GERD who presented to the emergency room after a 1 minute episode of chest "tightness." He says that it began yesterday when he was moving shrubbery from his trailer at his home. He developed a tight feeling in his chest that radiated to his left arm and a "stabbing" sensation in his left shoulder blade. He says he rested for about 10-15 minutes, but the pain disappeared after 1 minute. He denies feeling short of breath, diaphoretic, or nauseous, however, he says that he has had episodes of lightheadedness and shortness of breath on exertion over the past "couple of years." He attributes this to being "out of shape." In addition, he states that he has been experiencing generalized muscle "aches" and weakness for the past few years. Upon review of his medical record, Dr. Ruiz, his PCP, is aware and is working this up. He was previously on pravastatin and began having myalgias. He stopped using it and his pain decreased. When he was restarted and the pain returned, he was switched to rosuvastatin and took coenzyme q10 with it which decreased his symptoms. Documentation in [employer]scripts states the the pain returned when he stopped taking the coenzyme q10. Dr. Ruiz was suspicious of polymalgia rheumatica and ordered ESR which was 9. He has yet to return to his office for continuing evaluation of these myalgias. Currently he is asymptomatic other than having diffuse muscle aches. Review of Systems Eyes: No worsening of vision Respiratory: No cough, No shortness of breath Cardiac: No chest pain, No palpitations Abdomen: No pain, No nausea, No vomiting, No diarrhea Male : No dysuria, No urinary frequency Neurologic: + weakness (feeling "not strong") Psychiatric: No depression symptoms Heme: No abnormal bleeding/bruising Endo: + fatigue Objective Vital Signs Date Time Temp Pulse Resp B/P (MAP) Pulse Ox O2 Delivery O2 Flow Rate FiO2 11/11/17 11:39 36.7 60 18 184/97 (126) 95 Room Air 5/9/18 08:00 Room Air 11/11/17 06:46 36.5 54 17 156/81 (106) 98 Room Air 11/11/17 04:02 Room Air 11/11/17 03:16 36.8 55 17 156/79 (104) 98 Room Air 11/11/17 00:01 Room Air 11/10/17 23:04 36.9 61 18 152/80 (104) 95 Room Air 11/10/17 21:54 Room Air 11/10/17 20:00 Room Air 11/10/17 19:05 37.2 64 149/86 (107) 95 Room Air 11/10/17 17:19 36.9 75 18 186/87 (120) 97 Room Air 11/10/17 15:30 Room Air 11/10/17 15:00 60 20 169/85 98 Room Air Physical Exam General Appearance: WD/WN, no apparent distress Eyes: bilateral eyes normal inspection ENT: TMs normal Respiratory/Chest: lungs clear, normal breath sounds, no respiratory distress Cardiovascular: regular rate, rhythm, no gallop Abdomen: normal bowel sounds, non tender, soft Extremities: non-tender, no pedal edema, no calf tenderness, + pertinent finding Neurologic/Psychiatric: + pertinent finding (strength is 5/5 in both proximal and distal upper and lower extremities) Laboratory Results Last 24 Hours Test 11/10/17 16:58 11/10/17 22:50 11/11/17 05:23 Total Creatine Kinase 574 U/L 463 U/L Troponin I < 0.015 ng/ml < 0.015 ng/ml Sodium Level 138 mmol/L Potassium Level 3.2 mmol/L Chloride Level 103 mmol/L Carbon Dioxide Level 29 mmol/L Anion Gap 6.0 mmol/L Blood Urea Nitrogen 14 mg/dl Creatinine 1.23 mg/dl Est Creatinine Clear Calc Drug Dose 55.0 ml/min Estimated GFR () 64.8 Estimated GFR (Non- 55.9 BUN/Creatinine Ratio 11.3 Random Glucose 113 mg/dl Calcium Level 8.0 mg/dl Assessment and Plan Assessment and Plan: This is a 77-year-old man with a history of hypertension, hypercholesterolemia, and GERD who presented with an first-time episode of angina pectoris who was found to have elevated creatinine kinase. UNSTABLE ANGINA Pt presents with exertional chest pain radiating to the left shoulder and left scapula that is relieved with rest with a history of exertional shortness of breath and cardiovascular risk factors including male sex, age of 77, and hypertension. As this is his first episode, this is consistent with unstable angina. Trended troponins (x3) are nonelevated and EKG shows no signs of ischemia. - Admitted to telemetry for continuous cardiac monitoring. He is in sinus rhythm in the 50s and 60s with PACs, PVCs, and intermittent first degree AV block. - His most recent lipid panel as an outpatient was normal except for an elevated triglyceride of 234. He is not diabetic. His last A1C is 5.8% in Apr. - He is currently receiving aspirin, rosuvastatin, and antihypertensive therapy (see below). - He has undergone an echo and a nuclear stress test. Echo reveals an EF of 60- 65% with borderline LVH and grade 1 diastolic dysfunction. Nuclear stress test did not cause EKG changes or symptoms in pt. - Consult cardiology for their opinion on when cardiac catheterization should be done: tomorrow or as an outpatient. ELEVATED CK CK was 619 on admission and is now 463 and trending downward. However, his CK level has been elevated for several months. He has been experiencing myalgias for years. He was switched from pravastatin to rosuvastatin. He had improvement of his symptoms when rosuvastatin was paired with coenzyme q10, but stopped taking it for an unknown reason. The most likely explanation for the CK is an adverse reaction of the statin, since ESR was 9 as an outpatient in September, making PMR less likely. I would recommend either a trial of fluvastatin, restarting coenzyme q10, reducing dose frequency to every other day, or stopping statin therapy and switching to ezetimibe. HYPERTENSION As an outpatient, he is managed with diltiazem 360 mg and Valsartan/HCTZ 160/25 mg daily. Since admission, we have held HCTZ due to hypokalemia. His blood pressure has been elevated with a max systolic of 186 and diastolic of 86. He has been treated with 2 doses of 12.5 mg of HCTZ. However, we must also balance his borderline bradycardia. Continue valsartan and diltiazem for now. HYPOKALEMIA Level was 3.2 on admission on 11/10 and today 11/11. He has been repleted with 40meq X2. The hypokalemia has been present since July 2017 at least. HYPERLIPIDEMIA Hold rosuvastatin for now and begin coenzyme Q10. GERD Continue ranitidine and pantoprazole. URINARY OUTLET OBSTRUCTION Continue tamsulosin INSOMNIA Pt reports taking 1/2 pill of 0.5mg of alprazolam PRN. We have adjusted his dose to be 0.25mg. OBSTRUCTIVE SLEEP APNEA Currently uses CPAP at 10-20cm of water pressure with C. flex setting at 3 according to his last pulmonary outpatient note. Continue CPAP at these settings while sleeping at night. DVT PROPHYLAXIS Continue heparin, encouraged ambulation. DISPOSITION Telemetry for continuous cardiac monitoring.
[2017-11-11] MEDS ORDERED: PERFLUTREN LIPID MICROSPHERE (DEFINITY) IV ONE (15:33)
[2017-11-11 16:13] VITALS: BP 167/89; PULSE 59; TEMP 36.9; O2SAT 98
--- NOTE | 2017-11-11 16:16 | ECHOCARDIOGRAM REPORT ---
*NOTICE TO RECEIVING [employer] This information is strictly Confidential and protected under [place] law. [place] law prohibits you from making any further disclosure of this information unless further disclosure is expressly permitted by the written consent of the person to whom it pertains or is authorized by law. A general authorization for the release of medical or other information is not sufficient for this purpose. Hospital accepts no responsibility if the information is made available to any other person, INCLUDING THE PATIENT. Interpretation Summary * Name: JUSTO HARO Study Date: 11/11/2017 03:16 PM BP: 184/97 mmHg * Patient Location: .2T\S\S230\S\1 HR: 60 * : 1940 (M/d/yyyy) Gender: Male Height: 68 in * Age: 77 yrs Ethnicity: [place] Weight: 206 lb * Ordering Physician: Akiko Adkins * Referring Physician: Self, Referred * Performed By: Caprice Dominique RDCS * * Reason For Study: Chest pain * BSA: 2.1 m2 * -- Conclusions -- * Left ventricular systolic function is normal. * No regional wall motion abnormalities noted. * Ejection Fraction = 60-65%. * There is borderline concentric left ventricular hypertrophy. * Grade I diastolic dysfunction, (abnormal relaxation pattern). Procedure Details * A complete two-dimensional transthoracic echocardiogram was performed (2D, M-mode, Doppler and color flow Doppler). * A contrast injection of Definity was performed to improve assessment of LV function. * Contrast was injected into an intravenous site in the right arm. * One vial of Definity ultrasound contrast was diluted in normal saline to a total volume of 10 ml. A total of '2' ml of solution was administered during imaging. * Lot # [id number] of Definity utilized for procedure. * Expiration date OCT 22. * The attending nurse who injected the contrast agent was Skye Unger RN. Left Ventricle * The left ventricle is normal in size. * There is borderline concentric left ventricular hypertrophy. * Ejection Fraction = 60-65%. * Left ventricular systolic function is normal. * No regional wall motion abnormalities noted. Right Ventricle * The right ventricle is grossly normal size. * The right ventricular systolic function is normal as assessed by tricuspid annular plane systolic excursion (TAPSE) (normal >1.5 cm). Atria * The left atrium is mildly dilated. * Borderline right atrial enlargement. * No ASD detected; PFO is not assessed. Mitral Valve * The mitral valve is grossly normal. * There is no mitral valve stenosis. * Significant mitral regurgitation is absent. Tricuspid Valve * The tricuspid valve is not well visualized, but is grossly normal. * Significant tricuspid regurgitation is absent. Aortic Valve * The aortic valve is normal in structure and function. * No hemodynamically significant valvular aortic stenosis. * There is no significant aortic regurgitation. Pulmonic Valve * The pulmonary valve is not well seen, but the Doppler examination is normal without significant regurgitation or stenosis. Great Vessels * The aortic root is normal size. * The pulmonary is not well visualized. Pericardium/Pleural * There is no pericardial effusion. Great Vessels * Normal inferior vena cava size and collapsability with sniff indicates a normal right atrial pressure of 3 mmHg Left Ventricular Diastolic Function * Grade I diastolic dysfunction, (abnormal relaxation pattern). MMode 2D Measurements and Calculations IVSd 1.1 cm LVIDd 5.0 cm LVIDs 3.3 cm LVPWd 1.2 cm IVS/LVPW 0.98 FS 33.6 % EDV(Teich) 116.8 ml ESV(Teich) 44.3 ml EF(Teich) 62.1 % EDV(cubed) 123.1 ml ESV(cubed) 36.1 ml EF(cubed) 70.7 % LV mass(C)d 217.9 grams LV mass(C)dI 105.3 grams/m\S\2 SV(Teich) 72.6 ml SI(Teich) 35.1 ml/m\S\2 SV(cubed) 87.0 ml SI(cubed) 42.0 ml/m\S\2 Ao root diam 3.8 cm Ao root area 11.4 cm\S\2 ACS 2.0 cm LA dimension 3.9 cm asc Aorta Diam 3.9 cm LA/Ao 1.0 LVOT diam 2.0 cm LVOT area 3.1 cm\S\2 LVAd ap4 25.4 cm\S\2 LVLd ap4 7.2 cm EDV(MOD-sp4) 74.7 ml EDV(sp4-el) 76.3 ml LVAs ap4 14.8 cm\S\2 LVLs ap4 6.3 cm ESV(MOD-sp4) 29.4 ml ESV(sp4-el) 29.5 ml EF(MOD-sp4) 60.7 % EF(sp4-el) 61.4 % LVAd ap2 33.3 cm\S\2 LVLd ap2 7.6 cm EDV(MOD-sp2) 120.6 ml EDV(sp2-el) 123.5 ml LVAs ap2 19.7 cm\S\2 LVLs ap2 6.9 cm ESV(MOD-sp2) 46.9 ml ESV(sp2-el) 47.7 ml EF(MOD-sp2) 61.1 % EF(sp2-el) 61.4 % LVLd %diff 5.7 % EDV(MOD-bp) 98.0 ml LVLs %diff 8.4 % ESV(MOD-bp) 37.9 ml EF(MOD-bp) 61.3 % SV(MOD-sp4) 45.3 ml SI(MOD-sp4) 21.9 ml/m\S\2 SV(MOD-sp2) 73.7 ml SI(MOD-sp2) 35.6 ml/m\S\2 SV(MOD-bp) 60.1 ml SI(MOD-bp) 29.0 ml/m\S\2 SV(sp4-el) 46.9 ml SI(sp4-el) 22.6 ml/m\S\2 SV(sp2-el) 75.8 ml SI(sp2-el) 36.6 ml/m\S\2 Doppler Measurements and Calculations MV E max radha 100.9 cm/sec MV A max radha 99.4 cm/sec MV E/A 1.0 MV dec time 0.23 sec Ao V2 max 111.5 cm/sec Ao max PG 5.0 mmHg Ao max PG (full) 1.9 mmHg RAY(V,A) 2.5 cm\S\2 RAY(V,D) 2.5 cm\S\2 LV V1 max PG 3.1 mmHg LV V1 max 87.8 cm/sec PA V2 max 122.2 cm/sec PA max PG 6.0 mmHg PA acc slope 688.8 cm/sec\S\2 PA acc time 0.09 sec PI max radha 207.7 cm/sec PI max PG 17.3 mmHg PI dec slope 211.3 cm/sec\S\2 PI P1/2t 287.9 msec PA pr(Accel) 39.4 mmHg
[2017-11-11] MEDS ORDERED: DVN/160 PO (17:40)
[2017-11-11] MEDS ORDERED: ROSU5TAB PO (17:40)
[2017-11-11] MEDS ORDERED: COEN50CA9 PO (17:40)
--- NOTE | 2017-11-11 17:44 | Discharge Instructions ---
Discharge Instructions Date of Service November 11, 2017. Admission Reason for Admission: Exertional Chest Pain Discharge Discharge Diagnosis / Problem: Chest pain-noncardiac Discharge Goals Goal(s): Improve disease control, Diagnostic testing, Therapeutic intervention Activity Recommendations Activity Limitations: as noted below Exercise/Sports Limitations: gradually increase as tolerated Shower/Bathe: no limitations Driving or Machine Use: no limitations . Instructions / Follow-Up Instructions / Follow-Up You were admitted with chest pain which was determined to not be coming from your heart. You do have elevated muscle enzymes which may be as a result of taking your statin drug (Crestor). Please hold off on taking Crestor for 1-2 weeks, and start CoQ10 50-100mg daily. You can restart your Crestor if muscle aches improve and your blood work is repeated with normalization of your muscle enzymes. Your cardiac stress test and Echocardiogram were normal except for some mild diastolic dysfunction as we discussed. Your potassium levels are low which may be from your HCTZ. This was discontinued and your Diovan will be increased to 160mg once daily for your high blood pressure. Please follow up with Dr. Ruiz within 1 week. Current Hospital Diet Patient's current hospital diet: AHA Diet (Heart Healthy) Discharge Diet Recommended Diet: AHA Diet (Heart Healthy) Procedures Procedures Performed: Echocardiogram Chest xray Nuclear Stress test Pending Studies Studies pending at discharge: no Medical Emergencies . Who to Call and When: Medical Emergencies: If at any time you feel your situation is an emergency, please call 911 immediately. . Non-Emergent Contact Non-Emergency issues call your: Primary Care Provider Call Non-Emergent contact if: your pain is not controlled, your pain is worsening, your pain is unusual for you, your pain is concerning you, you have any medication questions . . "Provider Documentation" section prepared by Akiko Adkins. .
[2017-11-11 17:56] VITALS: BP 167/89; PULSE 59; TEMP 36.9; O2SAT 98
--- NOTE | 2017-11-11 19:52 | MYOCARDIAL PERFUSION SCAN ---
ONE-DAY NUCLEAR MEDICINE MYOCARDIAL PERFUSION SCAN CLINICAL HISTORY: This stress test is being performed because of an atypical chest pain syndrome. COMPARISON: None. TECHNIQUE: For the stress portion of the study, 32mCi of Technetium 99 m Cardiolite IV was injected at 1:35 pm on 11/11/2017. Thirty minutes following the injection, imaging of the heart was performed in multiple projection. For the rest portion of the study, 10.3 mCi of Technetium 99 m Cardiolite was injected IV at 12:00 pm. One hour following the injection, imaging of the heart was performed in the same projections. For the stress portion of the study, 0.4 mg of Lexiscan was injected intravenously as per protocol. Baseline EKG noted sinus rhythm with a left axis deviation. There were no ST segment changes seen with the infusion. The patient did not experience chest discomfort. Following the study, the patient was hemodynamically stable without complaints. FINDINGS: The short axis, vertical long axis, and horizontal long axis images were reviewed in detail. There is a small fixed defect in the proximal inferior wall present at both stress and rest. The rotating gated images suggest that this is diaphragmatic attenuation rather than a prior myocardial infarction. There is no evidence of stress induced myocardial ischemia. The left ventricle demonstrates normal systolic function without wall motion abnormalities. The left ventricular ejection fraction is 66%. IMPRESSION: 1. No scintigraphic evidence of prior myocardial infarction or stress induced myocardial ischemia. 2. No Lexiscan induced chest pain. 3. No Lexiscan induced EKG changes. 4. Normal left ventricular systolic function with an ejection fraction of 66%. There are no wall motion abnormalities.
[2017-11-11] MEDS ORDERED: ALPRAZOLAM 0.5 MG TAB PO SCH (21:00)
--- NOTE | 2017-11-11 22:18 | Discharge Summary ---
Discharge Summary Date of Service November 11, 2017. Discharge Summary Admission Date: November 10, 2017 at 14:44 Discharge Date: November 11, 2017 Discharge Disposition: Home Principal Diagnosis: Chest pain-noncardiac Problems/Secondary Diagnoses: HTN HPL BPH GERD Dyspnea on exertion Mild rhabdomyolysis Hypokalemia Chronic diastolic CHF Procedures: Chest xray ECHO Nuclear Stress test Consultations: None Medication Reconciliation New Medications: Coenzyme Q10 (Ubidecarenone) (Coq-10) 50 Mg Cap 50 MG PO DAILY for 30 Days OTC Valsartan (Diovan) 160 Mg Tab 1 TAB PO DAILY for 30 Days, #30 TAB 0 Refills Changed Medications: Rosuvastatin Calcium (Crestor) 5 Mg Tab 5 MG PO DAILY for 30 Days (Medication details modified) HOLD x 1-2 weeks until muscle aches resolve, and then restart Continued Medications: Alprazolam (Xanax) 0.5 Mg Tab 0.25 MG PO HS for 30 Days, TAB Aspirin (Aspirin) 81 Mg Tab 81 MG PO DAILY Diltiazem Hcl Extended Release (Tiazac 360 Mg) 360 Mg Cap 360 MG PO DAILY, CAP Pantoprazole (Protonix) 40 Mg Tab 40 MG PO DAILY Ranitidine Hcl (Zantac) 150 Mg Tab 150 MG PO HS Tamsulosin Hcl (Flomax) 0.4 Mg Cap 0.4 MG PO HS Discontinued Medications: Benzonatate (Tessalon Perles) 100 Mg Cap 100 MG PO TID Doxycycline Monohydrate (Monodox) 100 Mg Cap 100 MG PO BID Oseltamivir Phosphate (Tamiflu) 75 Mg Cap 75 MG PO BID, #10 CAP Valsartan/Hctz (Diovan Hct 160MG/25MG) 1 Tab Tab 1 TAB PO DAILY Discharge Exam No further CP since admission, no SOB. Telemetry without significant arrhythmia. Review of Systems: Constitutional: No problem reported Eyes: No problem reported ENT: No problem reported Respiratory: No problem reported Cardiovascular: No problem reported Abdomen: No problem reported Musculoskeletal: No problem reported Genitourinary - Male: No problem reported Neurologic: No problem reported Psychiatric: No problem reported Endocrine: No problem reported Hematologic / Lymphatic: No problem reported Integumentary: No problem reported Physical Exam: General Appearance: WD/WN, no apparent distress Eyes: normal inspection, EOMI, sclerae normal ENT: hearing grossly normal Neck: no adenopathy, no carotid bruits, trachea midline Respiratory/Chest: lungs clear, normal breath sounds, no respiratory distress, no accessory muscle use Cardiovascular: regular rate, rhythm, no edema, no gallop, no murmur, normal peripheral pulses Abdomen / GI: normal bowel sounds, non tender, soft Extremities: normal inspection, no calf tenderness, no pedal edema Neurologic/Psychiatric: alert, normal mood/affect, oriented x 3 Skin: normal color, warm/dry, no rash Hospital Course This patient is a 77 y/o M Hx HTN, HPL, BPH, GERD. Pt reports exertional CP that was substernal, came on with exertion and went away with rest. It was associated with SOB, no nausea or diaphoresis. He has also had SOB which has progressed with exertion over the past week. He was admitted and had serially negative troponins. ECG with no ischemic changes. Telemetry without arrhythmia. ECHO without wall motion abnormalities and normal EF, with grade 1 diastolic dysfunction. Nuc stress was normal. His initial labs revealed an elevated CK in the 600s that trended downward to the 400s. Exertional CP - noncardiac. Could be GI related or MSK in nature given ongoing myalgias and mild rhabomyolysis which may be statin related -Continue ASA, hold statin for 1-2 weeks and restart CoQ10. Then can trial a restart of Crestor after myalgias resume while on CoQ10 -needs improved control of BPs as below HTN - BPs were uncontrolled during admission at times in the 180s systolic. He had hypokalemia persistenyl and this has been ongoing for years in his labs. -recommend dc HCTZ and increasing Diovan to 160mg daily -continue Diltiazem HPL -statin holiday as above GERD - cont Ranitidine, Protonix BPH - cont Flomax Hypokalemia-replaced K+ and dc HCTZ as above Stable for dc to home Total Time Spent: Greater than 30 minutes This includes examination of the patient, discharge planning, medication reconciliation, and communication with other providers. Discharge Instructions Please refer to the electronic Patient Visit Report (Discharge Instructions) for additional information. Follow-Up With PCP within 1 week Additional Copies To Yung Ruiz M.D.
[2017-11-12] MEDS ORDERED: VALSARTAN 80 MG TAB PO SCH (09:00)
== END 2017-11-11 18:17 | disposition home or self-care (01) ==
LOC: C.EDB 12:04 → C.2T 14:44 → ENRESERV 15:26
PROVIDERS: ADMIT Internal Medicine; ATTEND Family Medicine
DX: R07.89 Other chest pain (principal); I11.0 Hypertensive heart disease with heart failure; I50.32 Chronic diastolic (congestive) heart failure; K21.9 Gastro-esophageal reflux disease without esophagitis; N40.0 Benign prostatic hyperplasia without lower urinary tract symptoms; R06.00 Dyspnea, unspecified; M62.82 Rhabdomyolysis; E78.00 Pure hypercholesterolemia, unspecified; E87.6 Hypokalemia; I25.10 Atherosclerotic heart disease of native coronary artery without angina pectoris; E78.5 Hyperlipidemia, unspecified; Z79.82 Long term (current) use of aspirin